=== PATIENT | female | born 1955 | race Caucasian/White ===

== ENCOUNTER 2018-10-30 12:20 | Emergency (ER) | payer BC, SELFPAY ==
[2018-10-30 12:25] VITALS: BP 153/92; PULSE 74; RESP 16; TEMP 36.4; O2SAT 97
--- NOTE | 2018-10-30 12:41 | ED.GENADUL_ITS ---
Discharge Plan Disposition Patient Disposition: HOME Condition: Stable Discharge Details Chief Complaint: Laceration Clinical Impression: Laceration of ankle, right Primary Care Provider: None,None ED Provider: Pricila Clifford Home Meds and New Rx's Prescriptions: No Action No Known Home Meds RF: 0 Discharge Instructions Instructions: Laceration (ED) Additional Instructions: Keep wound clean and dry. You may wash with soap and water and pat dry. If you notice any signs of infection such as swelling, tenderness, redness, apply topical antibiotic ointment. Be sure to rest and elevate your foot as much as possible. Follow-up with your primary care doctor or return to the emergency department in 7 days for suture removal. Return to the emergency department if you notice any significant signs of infection such as fever, red streaking up your leg or any other concerns. Stand Alone Forms: Work Release Discharge Data Discharge Date/Time-TO BE ENTERED AT DEPARTURE: 10/30/18 15:03 Medical Decision Making 62-year-old female presents with right ankle laceration sustained on a storm door while walking outside at her house prior to arrival. Unsure of her last tetanus status. A 3 cm laceration lateral to her Achilles tendon. There is no active bleeding. No obvious tendon injury, foreign body or bony deformity. Patient was offered x-ray but declines. She was given a Boostrix here. Wound was irrigated well and 5 nylon sutures placed. She was advised to rest and elevate as much as possible, alternate Tylenol Motrin for pain, apply topical antibiotic ointment in case of signs of i nfection. She is advised to follow-up with her primary care doctor for reevaluation and to return here with any worsening symptoms. HPI General Mode of arrival: ambulatory . Date/Time Provider Initiated Documentation: 10/30/18 12:25 . Limitations to Documentation: no limitations . Information obtained by: patient . HPI Narrative: Patient is a 62-year-old female who presents with right ankle laceration sustained at home prior to arrival. Patient states she was walking outside when she pushed her storm door and it clipped the side of her right ankle. She denies any bony injury or known foreign body. She states the pain is mainly just located around the laceration. She denies any other injury. She is unsure of her last tetanus status. Related Data Home Medications Medication Instructions Recorded Confirmed Unknown [No Known Home Meds] 10/30/18 10/30/18 Allergies Allergy/AdvReac Type Severity Reaction Status Date / Time erythromycin base AdvReac Nausea Unverified 10/30/18 12:27 General Stated Complaint: Laceration WALTER: 4 Review of Systems Review of Systems ROS Unobtainable: All systems reviewed & are unremarkable except as noted in HPI and below PFSH Medical History Osteochondroma (Acute) Surgical History Osteochondroma of bone (Acute) w/ resection Social History Smoking/Tobacco Use Status: Never Alcohol Intake: current Alcohol Intake frequency: holidays/special occasions only Alcohol type: beer and wine Drug use: Never Substance use type: does not use Do you feel safe at home: Yes Do you feel safe in your relationship?: Yes Exam Const General: cooperative, healthy appearing and no acute distress HENMT Head: normal to inspection Mouth: oral mucosae normal Eyes General: appearance normal, both eyes and all related structures Neck Neck: normal visual inspection Resp Effort & Inspection: normal respiratory effort and able to speak in complete sentences Cardio Rate: regular rate Skin General skin exam: no rashes or lesions noted Neuro General: alert, awake and oriented x3 Motor: muscle tone normal throughout Extrem Ankle/foot/toe images: 1. 3 cm straight laceration on right lateral heel. No extension into Achilles tendon. Normal plantar/dorsiflexion. Right DP/PT pulses intact. No bony deformity noted to fifth metatarsal or ankle. Other: No tenderness to palpation overlying medial or lateral malleolus, or remainder of foot. No active bleeding. No bony deformity. No palpable foreign body. Psych Appearance: grossly normal Affect: normal affect Course Vital Signs Vital signs: Vital Signs Temperature 97.5 F L 10/30/18 12:25 Pulse 74 10/30/18 12:25 Respiratory Rate 16 10/30/18 12:25 Blood Pressure 153/92 H 10/30/18 12:25 Pulse Oximetry 97 10/30/18 12:25 Temperature 97.5 F L 10/30/18 12:25 Temperature Source Skin 10/30/18 12:25 Pulse 74 10/30/18 12:25 Respiratory Rate 16 10/30/18 12:25 Respiratory Effort Non-Labored 10/30/18 12:28 Blood Pressure 153/92 H 10/30/18 12:25 Blood Pressure Position Sitting 10/30/18 12:25 Pulse Oximetry 97 10/30/18 12:25 Oxygen Delivery Method Room Air 10/30/18 12:25 Oxygen Flow Rate 0 10/30/18 12:25 Pain Level 3 10/30/18 12:25 Procedures Laceration Laceration 1: Site: lower extremity (Right ankle) Side (If applicable): right Size (cm): 3 Description: linear Depth: simple, single layer Local Anesthetic: Lidocaine 1% and with Epi Amount of anesthesia used (mL): 8 Pre-repair: wound explored and irrigated extensively Skin layer closed with: nylon Size (cm): 4-0 Number of sutures: 5 Technique: simple, interrupted
[2018-10-30 15:03] VITALS: BP 153/92; PULSE 74; RESP 16; TEMP 36.4; O2SAT 97
== END 2018-10-30 15:03 | disposition home or self-care (01) ==
PROVIDERS: Emergency Provider Physician Assistant
DX: S91.011A Laceration without foreign body, right ankle, initial encounter (principal); W45.8XXA Other foreign body or object entering through skin, initial encounter
CPT/HCPCS: 12002; 90471

== ENCOUNTER 2018-11-09 14:06 | Emergency (ER) | payer BC, SELFPAY ==
[2018-11-09 14:16] VITALS: BP 183/99; PULSE 85; RESP 18; TEMP 36; O2SAT 98
--- NOTE | 2018-11-09 14:27 | W.ED.GENAD ---
Discharge Plan Disposition Patient Disposition: HOME Condition: Stable Discharge Details Chief Complaint: SutureRem Clinical Impression: Encounter for removal of sutures Primary Care Provider: None,None ED Provider: Donovan Rush Home Meds and New Rx's Prescriptions: No Action No Known Home Meds RF: 0 Discharge Instructions Additional Instructions: your blood pressure was high here. this should be repeated when you see your primary care provider that you get established with if redness spreads away from the wound or you have severe worsening of pain return to the emergency department Stand Alone Forms: Work Release Medical Decision Making 62 yo female comes in with suture removal, had them placed a week ago on right lower lateral ankle. She has full rom of the ankle withintact sensation and no redness. Has some pain with plantar flexion otherwise no concerning findings on exam, suspect possible tendinitis. Will have nursing remove sutures and return if signs of infection develop Differential Diagnosis Differential Diagnosis: suture removal, tendinitis HPI General Mode of arrival: ambulatory. Date/Time Provider Initiated Documentation: 11/09/18 14:27. Limitations to Documentation: no limitations. Information obtained by: patient. History of Present Illness 62 year old F presents to the emergency department with the chief complaint of suture removal, described as mild, Quality is described as aching, No relieving factors improve symptom(s), No exacerbating factors reported . Patient notes no other symptoms.. Related Data Home Medications Medication Instructions Recorded Confirmed Unknown [No Known Home Meds] 10/30/18 10/30/18 Allergies Allergy/AdvReac Type Severity Reaction Status Date / Time erythromycin base AdvReac Nausea Unverified 10/30/18 12:27 General Stated Complaint: SutureRem WALTER: 4 Review of Systems Review of Systems ROS Unobtainable: All systems reviewed & are unremarkable except as noted in HPI and below Constitutional Constitutional: Denies chills, Denies fever(s) and Denies weakness ENT Ears, Nose, Mouth, and Throat: Denies change in voice Cardiovascular Cardiovascular: Denies chest pain and Denies dyspnea Respiratory Respiratory: Denies cough and Denies dyspnea Gastrointestinal Gastrointestinal: Denies abdominal pain, Denies nausea and Denies vomiting Musculoskeletal Musculoskeletal: Denies joint swelling Neurologic Neurologic: Denies weakness [facility] Social History Smoking/Tobacco Use Status: Never Alcohol Intake: current Alcohol Intake frequency: holidays/special occasions only Alcohol type: beer and wine Drug use: Never Substance use type: does not use Do you feel safe at home: Yes Do you feel safe in your relationship?: Yes Exam Const General: no acute distress Orientation: alert HENMT Head: normal to inspection Ears: external ears normal General nose exam: external nose normal Mouth: moist mucous membranes Eyes General: appearance normal, both eyes and all related structures Neck Neck: normal visual inspection Resp Effort & Inspection: normal respiratory effort and able to speak in complete sentences Cardio Rate: regular rate Skin General skin exam: no rashes or lesions noted Neuro General: alert and oriented x3 Extrem General: full ROM and normal capillary refill Psych Mental Status: mental status grossly normal Course Vital Signs Vital signs: Vital Signs Temperature 36 C L 11/09/18 14:16 Pulse 85 11/09/18 14:16 Respiratory Rate 18 11/09/18 14:16 Blood Pressure 183/99 H 11/09/18 14:16 Pulse Oximetry 98 11/09/18 14:16 Temperature 36 C L 11/09/18 14:16 Temperature Source Temporal Artery Scan 11/09/18 14:16 Pulse 85 11/09/18 14:16 Respiratory Rate 18 11/09/18 14:16 Blood Pressure 183/99 H 11/09/18 14:16 Blood Pressure Position Sitting 11/09/18 14:16 Pulse Oximetry 98 11/09/18 14:16 Pain Level 2 11/09/18 14:16
== END 2018-11-09 14:42 | disposition home or self-care (01) ==
PROVIDERS: Emergency Provider Emergency Medicine
DX: S91.011D Laceration without foreign body, right ankle, subsequent encounter (principal); X58.XXXD Exposure to other specified factors, subsequent encounter; Z48.02 Encounter for removal of sutures

== ENCOUNTER 2020-01-25 05:03 | Outpatient (CLI) | payer BC, SELFPAY ==
[2020-01-25 09:41] LABS: Abs Immature Grans 0.02 10^3/uL (0.0-0.06); Absolute Basophil Count 0.05 10^3/uL (0.0-0.2); Absolute Eosinophil Count 0.05 10^3/uL (0.0-0.7); Absolute Lymphocyte Count 1.82 10^3/uL (1.2-3.4); Absolute Monocyte Count 0.36 10^3/uL (0.1-0.8); Absolute Neutrophil Count 4.17 10^3/uL (1.2-6.7); Basophils % 0.8; Eosinophils % 0.8; HCT 37.2 % (36.0-46.0); HGB 12.7 g/dL (11.2-15.7); Immature Grans % 0.3; Lymphocytes % 28.1; MCH 29.5 pg (27.0-33.0); MCHC 34.1 % (32.0-36.0); MCV 86.5 fL (80-95); MPV 9.9 fL (8.0-11.0); Monocytes % 5.6; Neutrophils % 64.4; Nucleated RBC 0 %; Platelet Count 263 10^3/uL (130-400); RDW 11.2 % (11.7-14.6); RDW-SD 35.2 fL; WBC 6.47 10^3/uL (4.4-10.8)
[2020-01-25 09:43] LABS: Iron 112 ug/dL (50-170); Total Iron Binding Capacity 358 ug/dL (250-450); Transferrin Sat 31 % (15-50)
[2020-01-25 10:05] LABS: Vitamin D 25 Total 52.8 ng/ml (30-100)
[2020-01-25 10:11] LABS: ALT 23 U/L (14-59); AST 19 U/L (15-37); Alkaline Phosphatase 85 U/L (46-116); Anion Gap 9.7 mmol/L (3-11); BUN 8 mg/dL (7-18); Bilirubin, Total 0.5 mg/dL (0.2-1.0); CO2 27.3 mmol/L (21.0-32.0); CREATININE 0.68 mg/dL (0.55-1.02); Calcium 8.6 mg/dL (8.5-10.1); Calculated LDL 110 mg/dL (<100); Chloride 97 mmol/L (98-107); Cholesterol 200 mg/dL (<200); Ferritin 71 ng/mL (8-252); Glucose 93 mg/dL (74-106); HDL Cholesterol 81 mg/dL (40-60); Potassium 3.9 mmol/L (3.5-5.1); Sodium 134 mmol/L (136-145); T4 8.4 ug/mL (4.7-13.3); TSH 1.33 uIU/mL (0.36-3.74); Triglyceride 45 mg/dL (<150); Vitamin B12 1339 pg/mL (193-986)
[2020-01-25 10:13] LABS: Folate > 20.0 ng/mL (8.6-20.0)
[2020-01-26 08:15] LABS: Homocysteine 9.4 umol/L (5.0-13.9)
[2020-01-26 13:58] LABS: Lipoprotein (a) 96 mg/dL (<=30)
[2020-01-26 17:18] LABS: Zinc, Serum 0.71 mcg/mL (0.66-1.10)
[2020-01-26 23:50] LABS: 25-Hydroxy D Total 56 ng/mL; 25-Hydroxy D2 <4.0 ng/mL; 25-Hydroxy D3 56 ng/mL
== END 2020-01-25 05:23 ==
PROVIDERS: PCP Naturopath; Visit Provider Naturopath
DX: R53.83 Other fatigue (principal); L60.9 Nail disorder, unspecified; E55.9 Vitamin D deficiency, unspecified; Z13.220 Encounter for screening for lipoid disorders
CPT/HCPCS: 36415; 80053; 80061; 82306; 83090; 83695; 82607; 82728; 82746; 83036; 83540; 83550; 84436; 84443; 84630; 85025